=== PATIENT | female | born 1975 | race Caucasian/White ===

== ENCOUNTER 2016-11-22 04:57 | Emergency (ER) | payer MEDICAID ==
[~2016-11-22] VITALS: Ht 152.4 cm; Wt 60.0 kg
[~2016-11-22 04:57] MED LIST: CLONOPIN PO; DOCU250C14 PO; FERR-63 PO; MOTRIN; PROVENTIL
[2016-11-22 05:01] VITALS: BP 151/109
== END 2016-11-22 08:23 | disposition left against medical advice (07) ==
LOC: ER 07:32
DX: Z53.21 Procedure and treatment not carried out due to patient leaving prior to being seen by health care provider (principal)